=== PATIENT | female | born 1975 | race American Indian/Alaskan Native ===

== ENCOUNTER 2019-10-31 10:58 | Outpatient (CLI) | payer OTHER ==
--- NOTE | 2019-10-31 11:54 | XRay Report ---
RIGHT SHOULDER 3 VIEWS INDICATION: LEFT ELBOW PAIN. COMPARISON: None. IMPRESSION: No acute osseous or soft tissue abnormality. No significant DJD. LEFT ELBOW 2 VIEWS INDICATION: LEFT ELBOW PAIN. COMPARISON: None. IMPRESSION: No acute osseous or soft tissue abnormality. No significant DJD. Signer Name: Quincy Vega Jr, MD Signed: 10/31/2019 11:50 AM Workstation Name: [id number]
== END 2019-10-31 10:59 | disposition home or self-care (01) ==
LOC: XRAY 10:58
PROVIDERS: ATTEND Internal Medicine
DX: M25.522 Pain in left elbow (principal); J45.909 Unspecified asthma, uncomplicated; G43.809 Other migraine, not intractable, without status migrainosus; M75.52 Bursitis of left shoulder; F43.10 Post-traumatic stress disorder, unspecified; M75.51 Bursitis of right shoulder; H93.13 Tinnitus, bilateral; F32.9 Major depressive disorder, single episode, unspecified; F41.8 Other specified anxiety disorders

== ENCOUNTER 2020-04-07 12:29 | Outpatient (CLI) | payer OTHER ==
--- NOTE | 2020-04-07 13:56 | Ultrasound Report ---
ULTRASOUND BREAST RIGHT LIMITED, 04/07/2020 CLINICAL INFORMATION / INDICATION: MASTODYNIA. Abnormalities on outside ultrasound TECHNIQUE: Limited COMPARISON: Outside ultrasound 03/31/2020, bilateral mammogram 10/16/2019 FINDINGS: The fairly superficial areas of concern on outside mammography are noted to be small benign-appearing lymph nodes measuring no more than 5 mm in length with short axis diameter of only up to 2 mm. An ad ditional benign-appearing lymph node is seen in the right axilla. Small incidental 3 mm simple cyst i s seen. An additional intramammary node appears benign is seen in the 9:30 position, 4 cm from the ni pple, with a short axis diameter of only 2 mm. No significant lesions are seen. IMPRESSION: No sonographic evidence of malignancy. Follow up recommendation: Routine yearly BI-RADS Category 2: Benign. A normal or "negative" report should not preclude biopsy or follow-up of a clinically suspicious find ing. Signer Name: Yang Jose MD Signed: 04/07/2020 1:52 PM Workstation Name: [id number]
== END 2020-04-07 12:30 | disposition home or self-care (01) ==
LOC: SPVWC 12:29
PROVIDERS: ATTEND Surgery
DX: N63.11 Unspecified lump in the right breast, upper outer quadrant (principal); N60.01 Solitary cyst of right breast

== ENCOUNTER 2020-10-16 09:41 | Outpatient (CLI) | payer OTHER | END 2020-10-16 09:42 | disposition home or self-care (01) | LOC: SPVWC 09:41 | PROVIDERS: ATTEND Surgery | DX: Z12.31 Encounter for screening mammogram for malignant neoplasm of breast (principal) | CPT/HCPCS: 77063; 77067 ==